=== PATIENT | female | born 1945 | race Caucasian/White ===

== ENCOUNTER 2019-05-27 09:24 | Inpatient (IN) | payer OTHER ==
[2019-05-21 12:43] VITALS: BMI 25.8
[2019-05-27] MEDS ORDERED: DEXAMETHASONE SOD PHOSPHATE/PF 10 MG/ML SDV ONE (11:34)
[2019-05-27] MEDS ORDERED: MIDAZOLAM HCL 2 MG/2 ML SINGLE DOSE VIAL ONE ×2 (11:35→14:50)
[2019-05-27] MEDS ORDERED: BUPIVACAINE HCL/PF 0.5% (5 MG/ML) 30 ML VIAL IJ ONE (11:35)
[2019-05-27] MEDS ORDERED: BUPIVACAINE HCL/PF 0.5% (5MG/ML) 10 ML VIAL ONE (14:19)
[2019-05-27] MEDS ORDERED: VANCOMYCIN 1,000 MG VIAL (RESTRICTED TO ID ONLY) ONE (14:50)
[2019-05-27] MEDS ORDERED: ONDANSETRON 4 MG/2 ML VIAL IVPUSH PRN ×2 (15:00→17:29)
[2019-05-27] MEDS ORDERED: traMADol HCL 50 MG TABLET PO PRN (15:02)
[2019-05-27] MEDS ORDERED: oxyCODONE HCL 5 MG TABLET PO PRN ×2 (15:02)
[2019-05-27] MEDS ORDERED: MAG HYDROX/AL HYDROX/SIMETH 30 ML UNIT-DOSE CUP PO PRN (17:29)
[2019-05-27] MEDS ORDERED: MAGNESIUM HYDROX 2400MG/30ML ORAL SUSPENSION 30 ML CUP PO PRN (17:29)
[2019-05-27] MEDS ORDERED: LACTATED RINGERS SOLUTION 1,000 ML IV SCH (17:30)
--- NOTE | 2019-05-27 17:36 | PN ---
Progress Note (short form) - Note Progress Note: 74F s/p LEFT distal femur tumor excisional biopsy POD #0. -Pain control: per anaesthesia team. -DVT PPx: -Chemical: ASA 81mg PO BID x 6 weeks. -Mechanical: NOAH's, SCD's. -Incentive spirometry q15 min. -PT/OT/Rehab, OOB. -PWB LLE. -Post-op Ancef x 3 doses. -f/u post-op TOV: 8 hours max. -f/u AM labs. -Diet as tolerated. -Care per medical hospitalist team. -f/u OR pathology. -Discharge planning: f/u [facility] [place] Office Saturday05/06/2019; call for appointment . -Will follow. Paulo Inman MD (Orthopaedic Surgery).
--- NOTE | 2019-05-27 17:39 | OP ---
Operative Note - Note: Operative Date: 05/27/19 Pre-Operative Diagnosis: Left distal femur tumor Operation: Excisional biopsy left distal femur tumor Implants: [place] lateral distal femoral condylar plate Post-Operative Diagnosis: Same as Pre-op Surgeon: Paulo Inman Vfx Artist: Nikita Inman Anesthesiologist/SENIOR BRANCH MANAGER: Darby Brian Anesthesia: Spinal Specimens Removed: Left distal femur tumor Estimated Blood Loss (mls): 250 Drains & Tubes with Location: 1 x deep HemoVac Fluid Volume Replaced (mls): 1,500 (Crystalloid) Operative Report Dictated: Yes
[2019-05-27] MEDS ORDERED: ACETAMINOPHEN 325 MG TABLET (FP) ONE (17:54)
[2019-05-27] MEDS: LACTATED RINGERS SOLUTION 1,000 ML IV SCH (18:32)
[2019-05-27] MEDS: ACETAMINOPHEN 325 MG TABLET (FP) PO SCH ×2 (18:33→22:45)
[2019-05-27] MEDS: FUROSEMIDE 20 MG TABLET (FP) PO SCH (18:45)
[2019-05-27] MEDS: CEFAZOLIN 1 GM/D5W 1 GM/50 ML BAG IVPB SCH (21:51)
[2019-05-27] MEDS ORDERED: oxyCODONE HCL 10 MG SUSTAINED ACTING TABLET PO SCH (22:00)
[2019-05-27] MEDS: ASPIRIN 81 MG CHEWABLE TABLETS PO SCH (22:44)
[2019-05-27] MEDS: SENNOSIDES/DOCUSATE COMBO (SENNA PLUS) TABLET (UD) PO SCH (22:44)
[2019-05-27] MEDS: ATORVASTATIN CA 80 MG TABLET (FP) PO SCH (22:45)
--- NOTE | 2019-05-27 23:29 | CONSULT ---
Consultation: REQUESTING PROVIDER: CONSULT REQUEST: We have been asked to medically evaluate this patient for ( specify). HISTORY OF PRESENT ILLNESS: REVIEW OF SYSTEMS: CONSTITUTIONAL: Absent: fever, chills, diaphoresis, generalized weakness, malaise, loss of appetite, weight change HEENT: Absent: rhinorrhea, nasal congestion, throat pain, throat swelling, difficulty swallowing, mouth swelling, ear pain, eye pain, visual changes CARDIOVASCULAR: Absent: chest pain, syncope, palpitations, irregular heart rate, lightheadedness , peripheral edema RESPIRATORY: Absent: cough, shortness of breath, dyspnea with exertion, orthopnea, wheezing, stridor, hemoptysis GASTROINTESTINAL: Absent: abdominal pain, abdominal distension, nausea, vomiting, diarrhea, constipation, melena, hematochezia GENITOURINARY: Absent: dysuria, frequency, urgency, hesitancy, hematuria, flank pain, genital pain MUSCULOSKELETAL: Absent: myalgia, arthralgia, joint swelling, back pain, neck pain SKIN: Absent: rash, itching, pallor HEMATOLOGIC/IMMUNOLOGIC: Absent: easy bleeding, easy bruising, lymphadenopathy, frequent infections ENDOCRINE: Absent: unexplained weight gain, unexplained weight loss, heat intolerance, cold intolerance NEUROLOGIC: Absent: headache, focal weakness or paresthesias, dizziness, unsteady gait, seizure, mental status changes, bladder or bowel incontinence PSYCHIATRIC: Absent: anxiety, depression, suicidal or homicidal ideation, hallucinations. PHYSICAL EXAMINATION Vital Signs - 24 hr 05/27/19 05/27/19 05/27/19 11:08 11:12 17:25 Temperature 98 F 97.4 F L Pulse Rate 78 71 Respiratory 19 16 Rate Blood Pressure 130/68 135/67 O2 Sat by Pulse 96 96 99 Oximetry (%) 05/27/19 05/27/19 05/27/19 17:30 17:35 17:40 Temperature Pulse Rate 68 72 67 Respiratory 17 15 18 Rate Blood Pressure 129/62 149/52 L 147/51 L O2 Sat by Pulse 99 100 99 Oximetry (%) 05/27/19 05/27/19 05/27/19 17:45 18:00 18:05 Temperature 97.4 F L Pulse Rate 70 68 68 Respiratory 14 18 16 Rate Blood Pressure 134/78 150/61 148/52 L O2 Sat by Pulse 100 100 100 Oximetry (%) 05/27/19 05/27/19 05/27/19 18:30 18:45 22:48 Temperature 97.6 F 97.4 F L 98.2 F Pulse Rate 66 68 74 Respiratory 18 16 18 Rate Blood Pressure 128/56 L 148/52 L 126/62 O2 Sat by Pulse 99 100 100 Oximetry (%) GENERAL: Awake, alert, and fully oriented, in no acute distress. HEAD: Normal with no signs of trauma. EYES: Pupils equal, round and reactive to light, extraocular movements intact, sclera anicteric, conjunctiva clear. No lid lag. EARS, NOSE, THROAT: Ears normal, nares patent, oropharynx clear without exudates. Moist mucous membranes. NECK: Normal range of motion, supple without lymphadenopathy, JVD, or masses. LUNGS: Breath sounds equal, clear to auscultation bilaterally. No wheezes, and no crackles. No accessory muscle use. HEART: Regular rate and rhythm, normal S1 and S2 without murmur, rub or gallop. ABDOMEN: Soft, nontender, not distended, normoactive bowel sounds, no guarding, no rebound, no masses. No hepatomegaly or splenomegaly. MUSCULOSKELETAL: Normal range of motion at all joints. No bony deformities or tenderness. No CVA tenderness. UPPER EXTREMITIES: 2+ pulses, warm, well-perfused. No cyanosis. No clubbing. Cap refill <2 seconds. No peripheral edema. LOWER EXTREMITIES: 2+ pulses, warm, well-perfused. No calf tenderness. No peripheral edema. NEUROLOGICAL: Cranial nerves II-XII intact. Normal speech. Normal gait. PSYCHIATRIC: Cooperative. Good eye contact. Appropriate mood and affect. SKIN: Warm, dry, normal turgor, no rashes or lesions noted. Laboratory Results - last 24 hr 05/27/19 05/27/19 13:30 13:35 Blood Type O POSITIVE O POSITIVE Antibody Screen Negative Active Medications Generic Name Dose Route Start Last Admin Trade Name Freq PRN Reason Stop Dose Admin Acetaminophen 650 mg 05/27/19 16:00 05/27/19 22:45 Tylenol - PO 05/30/19 15:59 650 mg Q6H THU Administration Al Hydroxide/Mg Hydroxide 30 ml 05/27/19 17:29 Mylanta Oral Suspension - PO Q4H PRN DYSPEPSIA Amlodipine Besylate 10 mg 05/28/19 10:00 Norvasc - PO DAILY [facility] Aspirin 81 mg 05/27/19 22:00 05/27/19 22:44 Asa - PO 81 mg BID THU Administration Atorvastatin Calcium 80 mg 05/27/19 22:00 05/27/19 22:45 Lipitor - PO 80 mg HS THU Administration Fentanyl 50 mcg 05/27/19 15:00 Sublimaze Injection - IVPUSH [id number] PRN PAIN-PACU ORDER X 4 DOSES ONLY Furosemide 20 mg 05/27/19 17:30 05/27/19 18:45 Lasix - PO Not Given ASDIR THU Lactated Ringer's 1,000 mls @ 75 mls/hr 05/27/19 15:00 05/27/19 18:32 Lactated Ringers Solution IV Not Given ASDIR THU Lactated Ringer's 1,000 mls @ 125 mls/hr 05/27/19 17:30 05/27/19 18:33 Lactated Ringers Solution IV 05/28/19 06:00 Not Given ASDIR THU Cefazolin Sodium 1 gm in 50 mls @ 100 mls/hr 05/27/19 21:00 05/27/19 21:51 Ancef 1 Gm Premixed Ivpb - IVPB 05/28/19 09:29 100 mls/hr Q6H THU Administration Magnesium Hydroxide 30 ml 05/27/19 17:29 Milk Of Magnesia - PO PRN PRN CONSTIPATION Ondansetron HCl 4 mg 05/27/19 15:00 Zofran Injection IVPUSH Q6H PRN NAUSEA AND/OR VOMITING Ondansetron HCl 4 mg 05/27/19 17:29 Zofran Injection IVPUSH Q6H PRN NAUSEA Oxycodone HCl 5 mg 05/27/19 15:02 Roxicodone - PO Q3H PRN PAIN LEVEL 4 - 6 Oxycodone HCl 10 mg 05/27/19 15:02 Roxicodone - PO Q3H PRN PAIN LEVEL 7 - 10 Pantoprazole Sodium 40 mg 05/28/19 10:00 Protonix - PO DAILY [facility] Senna/Docusate Sodium 2 tablet 05/27/19 22:00 05/27/19 22:44 Pericolace - PO 2 tablet BID THU Administration Tramadol HCl 50 mg 05/27/19 15:02 Ultram - PO Q3H PRN PAIN LEVEL 1 - 3 Valsartan 320 mg 05/28/19 10:00 Diovan - PO DAILY THU ASSESSMENT/PLAN: Dispo: We will continue to follow the patient. Thank you for this consultative opportunity.
[2019-05-28] MEDS: CEFAZOLIN 1 GM/D5W 1 GM/50 ML BAG IVPB SCH ×2 (04:00→16:18)
[2019-05-28] MEDS: ACETAMINOPHEN 325 MG TABLET (FP) PO SCH ×4 (04:09→21:30)
--- NOTE | 2019-05-28 08:03 | PN ---
Progress Note (short form) - Note Progress Note: SURGERY 74yo F s/p excisional biopsy Lt femur tumor, POD 1, pt seen and examined at bedside. Pt states leg pain is well controlled. Pt denies fever, chills, n/v. Pt complains of some decreased sensation and weakness in her Left foot. Pt states that she has some baseline weakness and numbness from her multiple spine issues, but that this is worse than normal. Vital Signs Temp 97.4 F L 05/28/19 05:00 Pulse 66 05/28/19 05:00 Resp 18 05/28/19 05:00 BP 133/57 L 05/28/19 05:00 Pulse Ox 99 05/28/19 05:00 Intake & Output 05/27/19 05/27/19 05/28/19 11:59 23:59 11:59 Intake Total 4050 Output Total 1025 60 Balance 3025 -60 Weight 128 lb Intake: IV 1900 Lactated Ringers Solution 300 1,000 ml @ 125 mls/hr IV ASDIR THU Rx#: [id number] IVPB 50 Oral 100 Other 2000 Output: Drainage 275 60 Left Knee 240 60 Urine 500 Void 500 Estimated Blood Loss 250 Other: Voiding Method Bedpan Bowel Movement No Height 4 ft 11 in Body Mass Index (BMI) 25.8 Weight Measurement Method Standing Scale PE: Gen: A&O x 3 Resp: breathing comfortably LLE: incision shows clean dressing, drain in place with serosanguinous drainage. Decreased sensation in Lt foot, 2/5 strength Lt foot. No edema Problem List - Problems (1) Neoplasm of femur Assessment/Plan: Plan -plan for pt to be discharged later today, will keep drain in til this afternoon. -OOB ambulate with PT -pain control -pt will be seen by Dr. Inman this afternoon then cleared for discharge home. Code(s): [id number] -
[2019-05-28 08:16] LABS: HEMATOCRIT 24.3 % (32.4-45.2); MCH 28.3 pg (25.7-33.7); MEAN CELL VOLUME 85.5 fl (80-96); MEAN PLT VOLUME 9.9 fl (7.5-11.1); PLATELET COUNT 234 K/MM3 (134-434); RBC 2.83 M/mm3 (3.60-5.2); RDW 13.2 % (11.6-15.6); WHITE BLOOD COUNT 13.4 K/mm3 (4.0-10.8)
[2019-05-28 08:17] LABS: CREATININE 2.1 mg/dl (0.55-1.3); MAGNESIUM 1.8 mg/dL (1.8-2.4); POTASSIUM 4.5 mmol/L (3.5-5.1)
[2019-05-28] MEDS: amLODIPine BESYLATE 10 MG TABLET (FP) PO SCH (10:12)
[2019-05-28] MEDS: ASPIRIN 81 MG CHEWABLE TABLETS PO SCH ×2 (10:12→21:29)
[2019-05-28] MEDS: VALSARTAN 160 MG TABLET (UD) PO SCH (10:13)
[2019-05-28] MEDS: SENNOSIDES/DOCUSATE COMBO (SENNA PLUS) TABLET (UD) PO SCH ×2 (10:13→21:33)
[2019-05-28] MEDS: PANTOPRAZOLE 40 MG TABLET PO SCH (10:13)
--- NOTE | 2019-05-28 10:37 | PN ---
Progress Note (short form) - Note Progress Note: POD1 s/p left femur tumor removal. Pt is in good spirits today, reports only mild pain. VSS, no anesthetic issues/complications noted.
--- NOTE | 2019-05-28 10:41 | HP ---
CHIEF COMPLAINT: Left distal femur tumor Operation: Excisional biopsy left distal femur tumor Surgeon: Dr. Inman HISTORY OF PRESENT ILLNESS: 74 year-old female with a PMH significant for HTN, HLD, Type II NIDDM, chronic kidney disease, spinal stenosis, and left distal femur tumor s/p excisional biopsy of left distal femur tumor today with Dr. Inman. Recent Travel: No PAST MEDICAL HISTORY: Hypertension Hyperlipidemia Type II NIDDM Chronic kidney disease Spinal stenosis PAST SURGICAL HISTORY: Partial nephrectomy 07/19 kidney tumor 2014 Ovarian mass resection 2014 Bilateral cataract section Dislocated shoulder Laryngeal polypectomy Carpal tunnel syndrome x 1 1983 Social History: Smoking: no Alcohol: social Drugs: no Allergies No Known Drug Allergies Allergy (Verified 05/27/19 11:13) HOME MEDICATIONS: Home Medications Medication Instructions Recorded Amlodipine Bes/Olmesartan Med 1 each PO DAILY 05/21/19 [Eloisa 10-40 mg Tablet] Aspirin [Ecotrin] 81 mg PO DAILY 05/21/19 Atorvastatin Ca [Lipitor] 80 mg PO HS 05/21/19 Ferrous Sulfate 325 mg PO DAILY 05/21/19 Furosemide [Lasix -] 20 mg PO ASDIR 05/21/19 REVIEW OF SYSTEMS CONSTITUTIONAL: Absent: fever, chills, diaphoresis, generalized weakness, malaise, loss of appetite, weight change HEENT: Absent: rhinorrhea, nasal congestion, throat pain, throat swelling, difficulty swallowing, mouth swelling, ear pain, eye pain, visual changes CARDIOVASCULAR: Absent: chest pain, syncope, palpitations, irregular heart rate, lightheadedness , peripheral edema RESPIRATORY: Absent: cough, shortness of breath, dyspnea with exertion, orthopnea, wheezing, stridor, hemoptysis GASTROINTESTINAL: Absent: abdominal pain, abdominal distension, nausea, vomiting, diarrhea, constipation, melena, hematochezia GENITOURINARY: Absent: dysuria, frequency, urgency, hesitancy, hematuria, flank pain, genital pain MUSCULOSKELETAL: Absent: myalgia, arthralgia, joint swelling, back pain, neck pain SKIN: Absent: rash, itching, pallor HEMATOLOGIC/IMMUNOLOGIC: Absent: easy bleeding, easy bruising, lymphadenopathy, frequent infections ENDOCRINE: Absent: unexplained weight gain, unexplained weight loss, heat intolerance, cold intolerance NEUROLOGIC: Absent: headache, focal weakness or paresthesias, dizziness, unsteady gait, seizure, mental status changes, bladder or bowel incontinence PSYCHIATRIC: Absent: anxiety, depression, suicidal or homicidal ideation, hallucinations. PHYSICAL EXAMINATION Vital Signs - 24 hr 05/27/19 05/27/19 05/27/19 11:08 11:12 17:25 Temperature 98 F 97.4 F L Pulse Rate 78 71 Respiratory 19 16 Rate Blood Pressure 130/68 135/67 O2 Sat by Pulse 96 96 99 Oximetry (%) 05/27/19 05/27/19 05/27/19 17:30 17:35 17:40 Temperature Pulse Rate 68 72 67 Respiratory 17 15 18 Rate Blood Pressure 129/62 149/52 L 147/51 L O2 Sat by Pulse 99 100 99 Oximetry (%) 05/27/19 05/27/19 05/27/19 17:45 18:00 18:05 Temperature 97.4 F L Pulse Rate 70 68 68 Respiratory 14 18 16 Rate Blood Pressure 134/78 150/61 148/52 L O2 Sat by Pulse 100 100 100 Oximetry (%) 05/27/19 05/27/19 05/27/19 18:30 18:45 22:48 Temperature 97.6 F 97.4 F L 98.2 F Pulse Rate 66 68 74 Respiratory 18 16 18 Rate Blood Pressure 128/56 L 148/52 L 126/62 O2 Sat by Pulse 99 100 100 Oximetry (%) 05/28/19 05/28/19 05/28/19 00:00 05:00 08:51 Temperature 97.9 F 97.4 F L Pulse Rate 76 66 Respiratory 18 18 18 Rate Blood Pressure 113/52 L 133/57 L O2 Sat by Pulse 97 99 99 Oximetry (%) 05/28/19 09:54 Temperature 97.5 F L Pulse Rate 83 Respiratory 20 Rate Blood Pressure 120/52 L O2 Sat by Pulse Oximetry (%) GENERAL: Awake, alert, and fully oriented, in no acute distress. HEAD: Normal with no signs of trauma. EYES: Pupils equal, round and reactive to light, extraocular movements intact, sclera anicteric, conjunctiva clear. LUNGS: Breath sounds equal, clear to auscultation bilaterally. HEART: Regular rate and rhythm, normal S1 and S2 UPPER EXTREMITIES: 2+ pulses, warm, well-perfused. No cyanosis. No clubbing. No peripheral edema. Left Lower Ext: Large surgical dressing covering upper thigh clean, dry, intact ; Hemovac drain with sanguinous output; +flex/extend toes, +sensory NEUROLOGICAL: Cranial nerves II-XII intact. Normal speech. Laboratory Results - last 24 hr 05/27/19 05/27/19 05/28/19 13:30 13:35 07:20 WBC 13.4 H RBC 2.83 L Hgb 8.0 L Hct 24.3 L MCV 85.5 MCH 28.3 MCHC 33.0 RDW 13.2 Plt Count 234 MPV 9.9 Sodium Potassium Chloride Carbon Dioxide Anion Gap BUN Creatinine Est GFR (CKD-EPI)AfAm Est GFR (CKD-EPI)NonAf Random Glucose Calcium Magnesium Blood Type O POSITIVE O POSITIVE Antibody Screen Negative 05/28/19 07:20 WBC RBC Hgb Hct MCV MCH MCHC RDW Plt Count MPV Sodium 137 Potassium 4.5 Chloride 106 Carbon Dioxide 21 Anion Gap 10 BUN 35.0 H Creatinine 2.1 H Est GFR (CKD-EPI)AfAm 25.84 Est GFR (CKD-EPI)NonAf 22.30 Random Glucose 160 H Calcium 9.0 Magnesium 1.8 Blood Type Antibody Screen Pre op BUN 42 Cr 2.4 Hgb 9.4 Intra op Vanc 500mg; Ancef 2.5g EBL 250cc No intra op fluids ASSESSMENT/PLAN: 74 year-old female with a PMH significant for HTN, HLD, Type II NIDDM, chronic kidney disease, spinal stenosis, and left distal femur tumor s/p excisional biopsy of left distal femur tumor with Dr. Inman. --POD #0 --perioperative antibiotics per surgery --pain management per surgery --ASA 81mg BID --protonix --bowel regimen --incentive spirometry --Hemovac drain, monitor output FEN Fluids: PO intake adequate Electrolytes: replete as indicated Nutrition: regular diet DVT prophylaxis: OOB, ambulation, SCDs, TEDs, ASA 81mg BID Physical therapy Dispo: continues to require inpatient care. Full code. Visit type - Emergency Visit Emergency Visit: No - New Patient This patient is new to me today: Yes Date on this admission: 06/05/19 - Critical Care Critical Care patient: No
[2019-05-28] MEDS ORDERED: CEFAZOLIN 1 GM/D5W 1 GM/50 ML BAG IVPB SCH (10:45)
--- NOTE | 2019-05-28 14:29 | OP ---
DATE OF OPERATION: DATE OF DICTATION: 05/27/2019 SURGEON: Paulo Inman MD DIVISION SERVICE MANAGER: Nikita Inman MD PREOPERATIVE DIAGNOSIS: Grade 1 chondrosarcoma, left distal femur. POSTOPERATIVE DIAGNOSIS: Grade 1 chondrosarcoma, left distal femur. OPERATION PERFORMED: 1. Osteotomy, left femur with prophylactic plating of left femur/internal fixation. (82095) 2. Curettage, distal diaphysis and metaphysis femur with bone allograft packing. (22612) ANESTHESIA: Conscious sedation with spinal anesthesia and peripheral block. ANTIBIOTICS: Kefzol 2 g and vancomycin 1 g. PROCEDURE: Patient correctly identified. Brought into the operating room. Left lower extremity was prepped and draped in the routine manner with Betadine scrub solution, wiped of all alcohol, DuraPrep applied. A bump was placed under the buttock to lift the buttock and present to us the lateral side of the thigh. Incision was made along the lateral side of the thigh and from the midline of the femur to just beyond the knee. The skin and subcutaneous tissues were opened with a sharp knife. The vastus lateralis was identified. Working in the stripping angle of the intermuscular septum, the vastus lateralis was lifted off the femur. Fluoroscopic evaluation revealed the top of the tumor. An elliptical osteotomy was performed with a small oscillating saw in the lateral surface of the femur extending about 4 inches from the cranial portion of the tumor bed. Once the actual bone was removed off the lateral surface of the tumor, it was noted in the bone that the tumor had grown onto the actual surface of the femur. The expanded tumor noted on the medial side was really seen, once the entire tumor bed had been resected using curettes, and curettaging the entire area out, inspecting the bone with dental mirrors, and a thorough lavage, looking at the bone bed carefully. After that, I used the Midas Mahendra to remove an extra 2 mm of bone throughout three- dimensionally the entire distal diaphysis and metaphyseal region of the femur itself. Once this had been performed, the tissues were thoroughly lavaged with pulse lavage. I cleaned up the bone bed. It looked healthy and beautifully normal. The 75 mL of cancellous chips were packed into the space and then a Sabrina fixed chondral plate was placed onto the lateral femur, this was a 12-hole plate, giving excellent prophylactic fixation with screws particularly in the distal femoral condyle. The wounds were thoroughly lavaged again. Closure of fascia with 1-Vicryl, subcutaneous with 1 and 2-0 Vicryl, as well as a vertical mattress nylon, and danny including both the subcutaneous tissue and the skin. A drain was placed, a 1/8-inch Hemovac, deep in the subfascial plane. No complications. The operation went extremely well. Verification of screws and plate on lateral and AP fluoroscopic exam revealed good positioning of all orthopedic hardware. MD KIRILL Belcher/[id number] MTDD
[2019-05-28] MEDS: LACTATED RINGERS SOLUTION 1,000 ML IV SCH (16:18)
--- NOTE | 2019-05-28 16:44 | PN ---
Physical Exam: SUBJECTIVE: Patient seen and examined OBJECTIVE: Vital Signs Period Temp Pulse Resp BP Sys/Manley Pulse Ox Last 24 Hr 97.4 F-98.2 F 66-84 14-20 113-150/48-78 97-100 GENERAL: Awake, alert, and fully oriented, in no acute distress. HEAD: Normal with no signs of trauma. EYES: Pupils equal, round and reactive to light, extraocular movements intact, sclera anicteric, conjunctiva clear. LUNGS: Breath sounds equal, clear to auscultation bilaterally. HEART: Regular rate and rhythm, normal S1 and S2 UPPER EXTREMITIES: 2+ pulses, warm, well-perfused. No cyanosis. No clubbing. No peripheral edema. Left Lower Ext: Large surgical dressing covering upper thigh clean, dry, intact ; Hemovac drain with sanguinous output; +flex/extend toes, +sensory NEUROLOGICAL: Cranial nerves II-XII intact. Normal speech. Laboratory Results - last 24 hr 05/28/19 05/28/19 07:20 07:20 WBC 13.4 H RBC 2.83 L Hgb 8.0 L Hct 24.3 L MCV 85.5 MCH 28.3 MCHC 33.0 RDW 13.2 Plt Count 234 MPV 9.9 Sodium 137 Potassium 4.5 Chloride 106 Carbon Dioxide 21 Anion Gap 10 BUN 35.0 H Creatinine 2.1 H Est GFR (CKD-EPI)AfAm 25.84 Est GFR (CKD-EPI)NonAf 22.30 Random Glucose 160 H Calcium 9.0 Magnesium 1.8 Active Medications Generic Name Dose Route Start Last Admin Trade Name Freq PRN Reason Stop Dose Admin Acetaminophen 650 mg 05/27/19 16:00 05/28/19 16:18 Tylenol - PO 05/30/19 15:59 650 mg Q6H THU Administration Al Hydroxide/Mg Hydroxide 30 ml 05/27/19 17:29 Mylanta Oral Suspension - PO Q4H PRN DYSPEPSIA Amlodipine Besylate 10 mg 05/28/19 10:00 05/28/19 10:12 Norvasc - PO 10 mg DAILY THU Administration Aspirin 81 mg 05/27/19 22:00 05/28/19 10:12 Asa - PO 81 mg BID THU Administration Atorvastatin Calcium 80 mg 05/27/19 22:00 05/27/19 22:45 Lipitor - PO 80 mg HS THU Administration Furosemide 20 mg 12/11/19 17:30 05/27/19 18:45 Lasix - PO Not Given ASDIR THU Lactated Ringer's 1,000 mls @ 75 mls/hr 05/27/19 15:00 05/28/19 16:18 Lactated Ringers Solution IV Not Given ASDIR THU Magnesium Hydroxide 30 ml 05/27/19 17:29 Milk Of Magnesia - PO PRN PRN CONSTIPATION Ondansetron HCl 4 mg 05/27/19 17:29 Zofran Injection IVPUSH Q6H PRN NAUSEA Oxycodone HCl 5 mg 05/27/19 15:02 Roxicodone - PO Q3H PRN PAIN LEVEL 4 - 6 Oxycodone HCl 10 mg 05/27/19 15:02 Roxicodone - PO Q3H PRN PAIN LEVEL 7 - 10 Pantoprazole Sodium 40 mg 05/28/19 10:00 05/28/19 10:13 Protonix - PO 40 mg DAILY THU Administration Senna/Docusate Sodium 2 tablet 05/27/19 22:00 05/28/19 10:13 Pericolace - PO 2 tablet BID THU Administration Tramadol HCl 50 mg 05/27/19 15:02 Ultram - PO Q3H PRN PAIN LEVEL 1 - 3 Valsartan 320 mg 05/28/19 10:00 05/28/19 10:13 Diovan - PO 320 mg DAILY THU Administration Pre op BUN 42 Cr 2.4 Hgb 9.4 Intra op Vanc 500mg; Ancef 2.5g EBL 250cc No intra op fluids ASSESSMENT/PLAN: 74 year-old female with a PMH significant for HTN, HLD, Type II NIDDM, chronic kidney disease, spinal stenosis, and left distal femur tumor s/p excisional biopsy of left distal femur tumor with Dr. Inman. --POD #1 --perioperative antibiotics complete --pain management per surgery --ASA 81mg BID --protonix --bowel regimen --incentive spirometry --Hemovac drain, monitor output FEN Fluids: PO intake adequate Electrolytes: replete as indicated Nutrition: regular diet DVT prophylaxis: OOB, ambulation, SCDs, TEDs, ASA 81mg BID Physical therapy Dispo: continues to require inpatient care. Full code. Visit type - Emergency Visit Emergency Visit: No - New Patient This patient is new to me today: No - Critical Care Critical Care patient: No
[2019-05-28] MEDS: ATORVASTATIN CA 80 MG TABLET (FP) PO SCH (21:29)
[2019-05-28] MEDS: FUROSEMIDE 20 MG TABLET (FP) PO SCH (21:46)
[2019-05-29] MEDS: ACETAMINOPHEN 325 MG TABLET (FP) PO SCH ×2 (04:32→10:21)
[2019-05-29 08:10] LABS: HEMATOCRIT 22.3 % (32.4-45.2); HEMOGLOBIN 7.3 GM/dl (10.7-15.3); MCH 28.1 pg (25.7-33.7); MCHC 32.9 g/dl (32.0-36.0); MEAN CELL VOLUME 85.6 fl (80-96); MEAN PLT VOLUME 9.8 fl (7.5-11.1); PLATELET COUNT 233 K/MM3 (134-434); RDW 13.1 % (11.6-15.6); WHITE BLOOD COUNT 12.2 K/mm3 (4.0-10.8)
--- NOTE | 2019-05-29 10:06 | PN ---
Progress Note (short form) - Note Progress Note: 74yo F s/p excisional biopsy Lt femur tumor, POD 2, pt seen and examined at bedside. Pt states leg pain is well controlled. Pt denies fever, chills, n/v. Pt states that her strength and feeling in her foot is much better, pt ambulated well with PT. Pt is anxious to go home today. Last Vital Signs Temp Pulse Resp BP Pulse Ox 98.6 F 80 18 139/61 99 05/29/19 05:00 05/29/19 05:00 05/29/19 05:00 05/29/19 05:00 05/29/19 09:00 CBC, BMP 05/29/19 07:34 05/28/19 07:20 PE: Gen: A&O x 3 Resp: breathing comfortably LLE: incision shows clean dressing, drain in place with serosanguinous drainage. Normal sensation in Lt foot, 5/5 strength Lt foot. No edema Problem List - Problems (1) Neoplasm of femur Assessment/Plan: Plan -drain was removed at bedside, without incident. -pt is cleared for discharge, from orthopedics standpoing. -pt will follow up with Dr. Inman in the office, call for follow up appt. -pt stated that she did not want any pain med Rx will only take Tylenol, explained to pt to call the office if pain becomes worse and need Rx. Pt discussed with Dr. Inman who agrees with plan. Code(s): [id number] -
--- NOTE | 2019-05-29 10:16 | PN ---
Progress Note (short form) - Note Progress Note: Patient seen and examined last night: 74F s/p LEFT distal femur tumor excisional biopsy and plate fixation/ stabilization POD #1. Pain well controlled. No acute events overnight. Pt. denies overnight history of headaches, chest pain, shortness of breath, nausea, vomiting, chills, & sweats. (+) Voiding; (+) Flatus; (-) BM. Ambulated in hallway today. All labs and vitals reviewed. PE: AAO x 3, NAD. L Femur: Dressing C/D/I. Drain intact, in place; 60cc serosanguinous drainage/ shift. B/L LE NV status at baseline. 74F s/p LEFT distal femur tumor excisional biopsy and plate fixation/ stabilization POD #1. -Pain control. -DVT PPx: -Chemical: ASA 81mg PO BID x 6 weeks. -Mechanical: NOAH's, SCD's. -Incentive spirometry q15 min. -PT/OT/Rehab, OOB. -PWB LLE. -f/u AM labs. -Diet as tolerated. -Care per medical hospitalist team. -f/u OR pathology. -Discharge planning: once drain has been removed, leave dressing as is; pt. to f /u [facility] [place] Office Saturday06/05/2019; call for appointment . -Will follow. Nikita Inman MD (Orthopaedic Surgery).
[2019-05-29] MEDS: PANTOPRAZOLE 40 MG TABLET PO SCH (10:19)
[2019-05-29] MEDS: VALSARTAN 160 MG TABLET (UD) PO SCH (10:20)
[2019-05-29] MEDS: ASPIRIN 81 MG CHEWABLE TABLETS PO SCH (10:20)
[2019-05-29] MEDS: amLODIPine BESYLATE 10 MG TABLET (FP) PO SCH (10:20)
[2019-05-29] MEDS: SENNOSIDES/DOCUSATE COMBO (SENNA PLUS) TABLET (UD) PO SCH (10:21)
[2019-05-29] MEDS ORDERED: FUROSEMIDE 20 MG TABLET (FP) PO SCH (10:30)
[2019-05-29 10:37] VITALS: BP 128/52; PULSE 91; TEMP 99.4
--- NOTE | 2019-05-29 19:45 | DS ---
"Physical Exam: SUBJECTIVE: Patient seen and examined OBJECTIVE: Vital Signs Period Temp Pulse Resp BP Sys/Manley Pulse Ox Last 24 Hr 98.2 F-99.4 F 76-91 18-20 124-139/51-64 99-100 PHYSICAL EXAM GENERAL: Awake, alert, and fully oriented, in no acute distress. HEAD: Normal with no signs of trauma. EYES: Pupils equal, round and reactive to light, extraocular movements intact, sclera anicteric, conjunctiva clear. LUNGS: Breath sounds equal, clear to auscultation bilaterally. HEART: Regular rate and rhythm, normal S1 and S2 UPPER EXTREMITIES: 2+ pulses, warm, well-perfused. No cyanosis. No clubbing. No peripheral edema. Left Lower Ext: Large surgical dressing covering upper thigh clean, dry, intact ; +flex/extend toes, +sensory NEUROLOGICAL: Cranial nerves II-XII intact. Normal speech. LABS Laboratory Results - last 24 hr 05/29/19 07:34 WBC 12.2 H RBC 2.60 L Hgb 7.3 L Hct 22.3 L MCV 85.6 MCH 28.1 MCHC 32.9 RDW 13.1 Plt Count 233 MPV 9.8 HOSPITAL COURSE: Date of Admission:05/28/19 Date of Discharge: 05/29/19 74 year-old female with a PMH significant for HTN, HLD, Type II NIDDM, chronic kidney disease, spinal stenosis, and left distal femur tumor s/p excisional biopsy of left distal femur tumor with Dr. Inman. --perioperative antibiotics complete --ASA 81mg BID x 6 weeks Minutes to complete discharge: 35 Discharge Summary Problems reviewed: Yes Reason For Visit: ENCHONDROMATOSIS Condition: Good - Instructions Diet, Activity, Other Instructions: Dr. Inman Discharge Instructions for Femur Surgery Post Operative Instructions Physical activity Weight bearing as tolerated on your surgical side. Wound care Leave your surgical dressing in place. Do not change the dressing until seen by your surgeon in the office. No baths or showers. Do not submerge your incision. Do not apply any ointments or lotions to your incision. Please call the office if your dressing is soiled/dirty or is falling off. Apply Graduated Compression Stockings (TEDS) to both lower extremities-remove daily for hygiene ONLY. Diet There are no dietary restrictions. Eat healthy, high-fiber foods. Drink 6 to 8 glasses of liquid each day. This will assist in keeping your bowels are regular. Pain management Any pain prescription medication ordered should be taken as prescribed for moderate to severe pain. Do not take additional Tylenol while taking Percocet. Posterior Hip Precautions: Do not cross the leg you had surgery on over your other leg. (Do not cross your legs.)Use an elevated toilet seat. Do not sit on low chairs or beds. Take Aspirin 81 mg two times a day for a total of 6 weeks to prevent blood clots. Call Dr. Inman for any of the following: Severe pain not relieved by medication Fever of 101 or higher Excessive bleeding or drainage on dressing Inability to urinate If you experience chest pain or shortness of breath, please seek emergency care immediately. Please call the office at to confirm your post-op appointment for the week following surgery. This report was requested by: Shanelle Donato | Reference #: [id number] Disposition: HOME - Home Medications Comprehensive Discharge Medication List: Ambulatory Orders Amlodipine Bes/Olmesartan Med [Eloisa 10-40 mg Tablet] 1 each PO DAILY 05/21/19 Aspirin [Ecotrin] 81 mg PO DAILY 05/21/19 Atorvastatin Ca [Lipitor] 80 mg PO HS 05/21/19 Ferrous Sulfate 325 mg PO DAILY 05/21/19 Furosemide [Lasix -] 20 mg PO ASDIR 05/21/19 This patient is new to me today: No Emergency Visit: No Critical Care patient: No - Discharge Referral Referred to [facility] No"
--- NOTE | 2019-07-24 15:19 | PATH ---
Surgical Pathology Report Patient Name: YANELIS NOEL Med. Rec. #: [id number] /Age/Gender: 1945 (Age: 74) / F Account: <[id number]> Location: [facility] Taken: 05/27/2019 Received: 05/27/2019 Reported: 07/24/2019 Physicians: Paulo Inman M.D. 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 Final Diagnosis Femur, left, mass, curettage: This case was sent for expert opinion to Dr. Brandin Evangelista (at [facility]) and his diagnosis is as follows: "The specimen shows fragments of a well differentiated cartilaginous neoplasm showing no significant increase in cellularity or atypia. In the material sampled, I can see no definitive evidence of a permeative growth pattern through pre-existing bone. Our expert Musculoskeletal Oncologic Radiologist believes that the appearances are benign, without definitive features of malignancy and, in this context, I think that the findings would fit best with an enchondroma." (See also complete consultation report from [facility], [place], [place]: [id number]). Comment: The consultation report was discussed with Dr. Paulo Inman on 07/22/19. Electronically Signed Soledad Barry M.D. Gross Description Received in formalin labeled "left femur mass," is a 10.0 x 9.5 x 1.2 cm aggregate of andre-brown fragments of bone and cartilaginous tissue. The specimen is entirely submitted in 15 cassettes, following decalcification. 05/29/201905/29/2019
== END 2019-05-29 14:22 | disposition home or self-care (01) | DRG 479 ==
LOC: SUATTDRO 09:24 → FASU 09:24 → EDSTATUS 13:00 → FASU 18:13 → FM/S 18:13
PROVIDERS: ADMIT Orthopaedic Surgery Orthopaedic Surgery of the Spine; ATTEND Nurse Practitioner Acute Care
PROC: 0QDC0ZZ Extraction of Left Lower Femur, Open Approach (ICD-10-PCS; 2019-05-27)
PROC: 0QRC07Z Replacement of Left Lower Femur with Autologous Tissue Substitute, Open Approach (ICD-10-PCS; 2019-05-27)
PROC: 0QBC0ZX Excision of Left Lower Femur, Open Approach, Diagnostic (ICD-10-PCS; principal; 2019-05-27 15:20)
DX: C41.9 Malignant neoplasm of bone and articular cartilage, unspecified (principal); N18.9 Chronic kidney disease, unspecified; E11.9 Type 2 diabetes mellitus without complications; M48.00 Spinal stenosis, site unspecified; E78.5 Hyperlipidemia, unspecified; I12.9 Hypertensive chronic kidney disease with stage 1 through stage 4 chronic kidney disease, or unspecified chronic kidney disease
CPT/HCPCS: 36415; 73552-TC-LT-FY; 76000-TC-FY; 80048; 83735; 85027; 86850; 86900; 86901; 94760; 97116-GP; 97162-GP

== ENCOUNTER 2020-08-19 07:28 | Day surgery (SDC) | payer OTHER ==
[2020-08-08 13:17] VITALS: BMI 25.8
[2020-08-19] MEDS ORDERED: BUPIVACAINE HCL/PF 0.25% (2.5MG/ML) 10 ML VIAL ONE (10:02)
[2020-08-19] MEDS ORDERED: MIDAZOLAM HCL 2 MG/2 ML SINGLE DOSE VIAL ONE (10:40)
[2020-08-19] MEDS ORDERED: PROPOFOL 20 ML ONE (10:44)
[2020-08-19] MEDS ORDERED: oxyCODONE HCL 5 MG TABLET PO PRN (11:52)
[2020-08-19] MEDS ORDERED: ONDANSETRON 4 MG/2 ML VIAL IVPUSH PRN (11:52)
[2020-08-19 12:03] VITALS: TEMP 97.1
[2020-08-19 12:54] VITALS: PULSE 79
[2020-08-19 13:45] VITALS: BP 151/70
== END 2020-08-19 13:40 | disposition home or self-care (01) ==
LOC: FASU 07:28
PROVIDERS: ATTEND Orthopaedic Surgery Orthopaedic Surgery of the Spine
PROC: 0LN70ZZ Release Right Hand Tendon, Open Approach (ICD-10-PCS; 2020-08-19)
PROC: 0LN70ZZ Release Right Hand Tendon, Open Approach (ICD-10-PCS; 2020-08-19)
PROC: 0LN70ZZ Release Right Hand Tendon, Open Approach (ICD-10-PCS; principal; 2020-08-19 10:00)
DX: M65.311 Trigger thumb, right thumb (principal); M65.321 Trigger finger, right index finger; M65.341 Trigger finger, right ring finger; I10 Essential (primary) hypertension; E11.9 Type 2 diabetes mellitus without complications
CPT/HCPCS: 82962; 94760